=== PATIENT | female | born 1980 | race Caucasian/White ===

== ENCOUNTER 2021-07-28 07:19 | Emergency (ER) | payer OTHER ==
[~2021-07-28 07:19] MED LIST: ADIPEX-P37.5 MG PO; ATARAX25 MG PO; CLEOCIN300 MG PO; NAPROXEN500 MG PO; NEURONTIN100 MG PO; PROMETHEGA12.5 MG/SU PR; SKELAXIN800 MG PO; SYNTHROID75 MCG PO; WELLBUTRIN75 MG PO; ZOFRAN4 MG PO
[2021-07-28 08:59] LABS: BASOPHIL 0.7 % (0-2); EOSINOPHIL 1.5 % (0-5); HCT 39.9 % (37.0-47.0); HGB 12.7 g/dl (12.5-16.0); LYMPHOCYTE 21.2 % (15-48); MCHC 31.8 g/dL (32.0-36.0); MCV 97.3 fL (78.0-100.0); MONOCYTE 9.5 % (0-12); NEUTROPHIL 66.9 % (41-80); NRBC 0; PLT 225 K/uL (150-400); RDW 11.9 % (11.5-14.0); WBC 6.1 K/uL (4.0-10.5)
[2021-07-28 09:44] LABS: ALBUMIN 3.7 g/dL (3.4-5.0); BILIRUBIN - TOTAL 0.3 mg/dL (0.2-1.0); BUN/CREAT RATIO (CALC) 12.8 RATIO; CREATININE 0.86 mg/dL (0.51-0.95); GLOBULIN (CALCULATION) 3.5 g/dL; POTASSIUM 3.7 mmol/L (3.5-5.1); TOTAL PROTEIN 7.2 g/dL (6.4-8.2)
[2021-07-28 10:55] LABS: BILIRUBIN NEGATIVE (NEGATIVE); BLOOD 3+ Ery/uL (NEGATIVE); CLARITY CLEAR (CLEAR); COLOR YELLOW (YELLOW); GLUCOSE (U) NORMAL (NORMAL); LEUKOCYTES NEGATIVE Leu/uL (NEGATIVE); NITRITE NEGATIVE (NEGATIVE); PROTEIN TRACE (LOW) mg/dL (NEGATIVE); SPECIFIC GRAVITY >=1.030 (1.001-1.030); UROBILINOGEN 0.2 mg/dL (0.2-1.0)
[2021-07-28] MEDS ORDERED: NORCO 5-325 TA1 EACH PO (11:01)
[2021-07-28] MEDS ORDERED: ONDANSETRON ODT4 MG PO (11:01)
[2021-07-28 11:02] LABS: BACTERIA 1+; URINARY RBC TNTC
== END 2021-07-28 11:51 | disposition home or self-care (01) ==
LOC: FER 07:19
PROVIDERS: Emergency Medicine
DX: N13.2 Hydronephrosis with renal and ureteral calculous obstruction (principal); N83.8 Other noninflammatory disorders of ovary, fallopian tube and broad ligament; Z88.8 Allergy status to other drugs, medicaments and biological substances
CPT/HCPCS: 36415; 80053; 81001; 83690; 85025; 96372; J1170; J1885; J2270; J2405; J7030